=== PATIENT | male | born 1990 | race Caucasian/White ===

== ENCOUNTER → 2017-11-18 08:51 | Outpatient (CLI) | payer OTHER, SELFPAY ==
--- NOTE | 2017-11-18 08:58 | ECHOD_ITS ---
Reason For Study: Bicuspid AV Procedure This was a 2D Doppler, Color Flow transthoracic echocardiogram. Exam performed in department. Left Ventricle Normal size and thickness. The estimated ejection fraction is 65 %. Normal diastology for age. No regional wall motion abnormalities noted. Right Ventricle Normal size and thickness. Normal systolic function. Atria Normal left atrium. Normal right atrium. Normal atrial septum. Mitral Valve The mitral valve is structurally normal. No prolapse or stenosis seen. Trivial mitral valve insufficiency. Tricuspid Valve Normal tricuspid valve. Unable to estimate RV systolic pressure due to inadequate jet, pulmonary artery pressure probably normal. Aortic Valve Bicuspid aortic valve. Mild aortic stenosis. Pulmonic Valve The pulmonic valve is not well visualized. Great Vessels Normal aortic root. Normal arch. Normal inferior vena cava. Inferior vena cava collapse with sniff. Pericardium/Pleural No pericardial effusion. MMode/2D Measurements & Calculations LVIDd: 5.0 cm IVSd: 1.0 cm LVOT diam: 2.2 cm LVIDs: 3.2 cm LVPWd: 1.1 cm LVOT area: 3.7 cm2 RVDd: 3.7 cm FS: 36.6 % Ao root diam: 3.7 cm LAV(MOD-bp): 51.3 ml LA A4 area: 14.9 cm2 LA dimension: 3.2 cm LAV(MOD-bp) Indexed: 24.0 ml/m2 LAV(MOD-sp2): 70.2 ml LAV(MOD-sp4): 37.4 ml RA A4 area: 12.2 cm2 Time Measurements MV dec time: 0.21 sec Doppler Measurements & Calculations MV E max macario: 86.4 cm/sec Lat Peak E' Macario: 11.5 cm/sec Med Peak E' Macario: 11.1 cm/sec MV A max macario: 87.2 cm/sec E/E' lat: 7.5 E/E' med: 7.8 MV E/A: 0.99 MV V2 max: 99.7 cm/sec MV P1/2t max macario: 86.7 cm/sec Ao V2 max: 168.5 cm/sec MV max P.0 mmHg MV P1/2t: 106.2 msec Ao max P.4 mmHg MV V2 mean: 56.6 cm/sec MV dec slope: 239.1 cm/sec2 Ao V2 mean: 104.0 cm/sec MV mean P.5 mmHg MVA(P1/2t): 2.1 cm2 Ao mean P.1 mmHg MV V2 VTI: 29.7 cm Ao V2 VTI: 30.0 cm MVA(VTI): 2.5 cm2 MARTA(I,D): 2.5 cm2 MARTA(V,D): 2.4 cm2 LV V1 max: 108.7 cm/sec SV(LVOT): 74.6 ml PA V2 max: 92.5 cm/sec LV V1 max P.7 mmHg LV V1 mean P.5 mmHg LV V1 mean: 71.5 cm/sec LV V1 VTI: 20.1 cm Interpretation Summary The estimated ejection fraction is 65 %. Normal diastology for age. Trivial mitral valve insufficiency. Unable to estimate RV systolic pressure due to inadequate jet, pulmonary artery pressure probably normal. Bicuspid aortic valve with fusion of the right and left coronary cusps. Mild aortic stenosis. Compared to echo report dated 11/14/2009, no appreciable changes noted. Ordering Physician: Pamela To Referring Physician: Pamela To Performed By: Wade Glass RCS
== END ==
DX: Q23.1 Congenital insufficiency of aortic valve (principal)
CPT/HCPCS: 93306

== ENCOUNTER 2018-07-25 07:32 | Outpatient (RCR) | payer OTHER, SELFPAY ==
[2018-07-18 10:01] LABS: Mean Corp Hgb Conc 33.3 g/gl (32-36); Mean Corpuscular Hgb 28.4 pg (27.0-32.0); Mean Corpuscular Volume 85.2 fL (80-94); Mean Platelet Vol. 10.9 fl (6.2-12.0); Platelet Count 108 K/mm3 (150-450); RBC Distribution Width CV 13.5 % (11.6-14.6); Red Blood Count 4.93 M/mm3 (4.6-6.2); White Blood Count 13.5 K/mm3 (4.4-11.0)
[2018-07-18 10:03] LABS: Scan Indicated on CBC? Y/N NO
[2018-07-25 10:27] LABS: Hematocrit 45.5 % (40-54); Mean Corpuscular Hgb 28.8 pg (27.0-32.0); Mean Corpuscular Volume 87.3 fL (80-94); Mean Platelet Vol. 12.9 fl (6.2-12.0); Platelet Count 28 K/mm3 (150-450); RBC Distribution Width SD 44.6 fl (35.1-43.9); Red Blood Count 5.21 M/mm3 (4.6-6.2); White Blood Count 13.6 K/mm3 (4.4-11.0)
[2018-07-25 10:51] LABS: AST(SGOT) 20 U/L (15-37); Alanine Aminotransfer ALT/SGPT 61 U/L (16-61); Albumin, Serum 3.9 g/dL (3.2-5.0); Alkaline Phosphatase 59 U/L (45-117); Anion Gap 10 (5-15); BUN 20 mg/dL (7-18); BUN/Creat Ratio 19.6 RATIO (10-20); Bilirubin, Direct 0.15 mg/dL (0.00-0.30); Calcium,Total 9.1 mg/dL (8.5-10.1); Chloride 102 mmol/L (98-107); Creatinine, Serum 1.02 mg/dL (0.70-1.30); EST Glomerular Filtration Rate 91 mL/min (>60); Est Glom Filt Rate - Afr Amer 110 mL/min (>60); Globulin 4.4 g/dL (2.2-4.2); Glucose 113 mg/dL (74-106); Potassium 4.3 mmol/L (3.5-5.1); Protein, Total 8.3 g/dL (6.4-8.2); Sodium Level 138 mmol/L (136-145)
[2018-07-25 11:14] LABS: Scan Indicated on CBC? Y/N YES- FLAGS NOTED
[2018-07-25 11:49] LABS: Differential Comment SCANNED
[2018-07-26 15:17] LABS: Absolute CD4 Helper 687 /uL (359-1519); Basophils (Absolute) 0 x10E3/uL (0.0-0.2); CD4/CD8 Ratio 0.46 (0.92-3.72); Eosinophils 0 % (Not Estab.); Eosinophils (Absolute) 0 x10E3/uL (0.0-0.4); Hematocrit 44.1 % (37.5-51.0); Hemoglobin 15.2 g/dL (13.0-17.7); Immature Granulocytes 0 % (Not Estab.); Immature Granulocytes Absolute 0 x10E3/uL (0.0-0.1); Lymphs 21 % (Not Estab.); Lymphs (Absolute) 2.9 x10E3/uL (0.7-3.1); MCH 29.9 pg (26.6-33.0); MCHC 34.5 g/dL (31.5-35.7); MCV 87 fL (79-97); Monocytes 6 % (Not Estab.); Monocytes (Absolute) 0.8 x10E3/uL (0.1-0.9); Neutrophils 73 % (Not Estab.); Neutrophils (Absolute) 9.9 x10E3/uL (1.4-7.0); Percent % CD4 Pos. Lymph. 23.7 % (30.8-58.5); RBC Count 5.09 x10E6/uL (4.14-5.80); RDW 14.8 % (12.3-15.4)
[2018-07-26 16:03] LABS: Platelets 34 x10E3/uL (150-379); WBC Count 13.7 x10E3/uL (3.4-10.8)
[2018-07-27 09:22] LABS: Pathologist Review Reviewed
[2018-07-28 11:24] LABS: HIV-1 RNA by PCR, Quant. 4950 copies/mL (.); LOG10 HIV-1 RNA 3.695 (.)
[2018-07-29 07:38] LABS: Rapid Plasmin Reagin (RPR) NONREACTIVE (NONREACTIVE)
== END 2018-07-25 09:00 | disposition home or self-care (01) ==
LOC: MTLAB 07:32
DX: D69.3 Immune thrombocytopenic purpura (principal); B20 Human immunodeficiency virus [HIV] disease
CPT/HCPCS: 36415; 80048; 80076; 85027; 86360; 86592; 87536

== ENCOUNTER 2018-08-22 07:39 | Outpatient (RCR) | payer OTHER, SELFPAY ==
[2018-08-08 10:32] LABS: Hematocrit 46.6 % (40-54); Hemoglobin 15.3 g/dl (13.0-16.5); Mean Corp Hgb Conc 32.8 g/gl (32-36); Mean Corpuscular Hgb 29.1 pg (27.0-32.0); Mean Corpuscular Volume 88.8 fL (80-94); Mean Platelet Vol. 11.1 fl (6.2-12.0); Platelet Count 100 K/mm3 (150-450); RBC Distribution Width CV 14.4 % (11.6-14.6); RBC Distribution Width SD 46.8 fl (35.1-43.9); Red Blood Count 5.25 M/mm3 (4.6-6.2); White Blood Count 9.8 K/mm3 (4.4-11.0)
[2018-08-08 10:34] LABS: Scan Indicated on CBC? Y/N NO
[2018-08-22 10:03] LABS: Hematocrit 44.3 % (40-54); Hemoglobin 15.3 g/dl (13.0-16.5); Mean Corp Hgb Conc 34.5 g/gl (32-36); Mean Corpuscular Hgb 30.4 pg (27.0-32.0); Mean Corpuscular Volume 87.9 fL (80-94); Mean Platelet Vol. 10.6 fl (6.2-12.0); Platelet Count 159 K/mm3 (150-450); RBC Distribution Width CV 13.7 % (11.6-14.6); RBC Distribution Width SD 43.6 fl (35.1-43.9); Red Blood Count 5.04 M/mm3 (4.6-6.2); White Blood Count 6.8 K/mm3 (4.4-11.0)
[2018-08-22 10:04] LABS: Scan Indicated on CBC? Y/N NO
== END 2018-08-25 15:02 | disposition home or self-care (01) ==
LOC: MTLAB 07:39
DX: D69.3 Immune thrombocytopenic purpura (principal)
CPT/HCPCS: 36415; 85027

== ENCOUNTER 2018-10-03 07:53 | Outpatient (RCR) | payer OTHER, SELFPAY ==
[2018-10-03 10:01] LABS: Hematocrit 42.8 % (40-54); Hemoglobin 14.7 g/dl (13.0-16.5); Mean Corp Hgb Conc 34.3 g/gl (32-36); Mean Corpuscular Hgb 29.9 pg (27.0-32.0); Mean Corpuscular Volume 87.2 fL (80-94); Mean Platelet Vol. 11.5 fl (6.2-12.0); Platelet Count 95 K/mm3 (150-450); RBC Distribution Width CV 13.9 % (11.6-14.6); RBC Distribution Width SD 43.4 fl (35.1-43.9); Red Blood Count 4.91 M/mm3 (4.6-6.2); White Blood Count 6.6 K/mm3 (4.4-11.0)
[2018-10-03 10:06] LABS: Scan Indicated on CBC? Y/N NO
== END 2018-10-25 16:00 | disposition home or self-care (01) ==
LOC: MTLAB 07:53
DX: D69.3 Immune thrombocytopenic purpura (principal)
CPT/HCPCS: 36415; 85027

== ENCOUNTER 2018-10-17 07:46 | Outpatient (RCR) | payer OTHER, SELFPAY ==
[2018-10-10 12:34] LABS: Hematocrit 42.9 % (40-54); Hemoglobin 14.5 g/dl (13.0-16.5); Mean Corp Hgb Conc 33.8 g/gl (32-36); Mean Corpuscular Hgb 29.2 pg (27.0-32.0); Mean Corpuscular Volume 86.5 fL (80-94); Mean Platelet Vol. 12.2 fl (6.2-12.0); Platelet Count 33 K/mm3 (150-450); RBC Distribution Width CV 13.7 % (11.6-14.6); RBC Distribution Width SD 42.8 fl (35.1-43.9); Red Blood Count 4.96 M/mm3 (4.6-6.2); White Blood Count 5.3 K/mm3 (4.4-11.0)
[2018-10-10 14:03] LABS: Scan Indicated on CBC? Y/N YES- FLAGS NOTED
[2018-10-11 14:11] LABS: Pathologist Review Reviewed
[2018-10-17 10:32] LABS: Hematocrit 41.9 % (40-54); Mean Corp Hgb Conc 33.4 g/gl (32-36); Mean Corpuscular Hgb 29.5 pg (27.0-32.0); Mean Corpuscular Volume 88.2 fL (80-94); Mean Platelet Vol. 11.3 fl (6.2-12.0); Platelet Count 41 K/mm3 (150-450); RBC Distribution Width CV 13.7 % (11.6-14.6); Red Blood Count 4.75 M/mm3 (4.6-6.2); White Blood Count 5.3 K/mm3 (4.4-11.0)
[2018-10-17 11:05] LABS: Scan Indicated on CBC? Y/N YES- FLAGS NOTED
[2018-10-17 11:19] LABS: Differential Comment SCANNED
[2018-10-18 14:43] LABS: Pathologist Review Reviewed
== END 2018-10-25 16:00 | disposition home or self-care (01) ==
LOC: MTLAB 07:46
DX: D69.3 Immune thrombocytopenic purpura (principal)
CPT/HCPCS: 36415; 85027

== ENCOUNTER 2018-10-26 13:36 | Outpatient (RCR) | payer OTHER, SELFPAY | END 2018-10-26 13:37 | disposition home or self-care (01) | LOC: MTLAB 13:36 | DX: D69.3 Immune thrombocytopenic purpura (principal) ==

== ENCOUNTER 2018-10-31 08:08 | Outpatient (RCR) | payer OTHER, SELFPAY ==
[2018-10-31 10:55] LABS: Hematocrit 45.5 % (40-54); Hemoglobin 15.2 g/dl (13.0-16.5); Mean Corp Hgb Conc 33.4 g/gl (32-36); Mean Corpuscular Hgb 29.8 pg (27.0-32.0); Mean Corpuscular Volume 89.2 fL (80-94); Mean Platelet Vol. 13.5 fl (6.2-12.0); Platelet Count 37 K/mm3 (150-450); RBC Distribution Width CV 13.2 % (11.6-14.6); RBC Distribution Width SD 43.2 fl (35.1-43.9)
[2018-10-31 11:01] LABS: Scan Indicated on CBC? Y/N YES- FLAGS NOTED
[2018-11-01 15:21] LABS: Pathologist Review Reviewed
== END 2018-10-31 10:00 | disposition home or self-care (01) ==
LOC: MTLAB 08:08
DX: D69.3 Immune thrombocytopenic purpura (principal)
CPT/HCPCS: 36415; 85027

== ENCOUNTER 2018-12-08 11:36 | Outpatient (RCR) | payer OTHER, SELFPAY ==
[2018-12-08 14:07] LABS: Hematocrit 44.4 % (40-54); Hemoglobin 14.6 g/dl (13.0-16.5); Mean Corp Hgb Conc 32.9 g/gl (32-36); Mean Corpuscular Hgb 29.6 pg (27.0-32.0); Mean Corpuscular Volume 89.9 fL (80-94); Mean Platelet Vol. 12.9 fl (6.2-12.0); RBC Distribution Width CV 12.4 % (11.6-14.6); RBC Distribution Width SD 40.2 fl (35.1-43.9); Red Blood Count 4.94 M/mm3 (4.6-6.2)
[2018-12-08 14:13] LABS: Platelet Count 37 K/mm3 (150-450); Scan Indicated on CBC? Y/N YES- FLAGS NOTED
[2018-12-08 14:38] LABS: AST(SGOT) 19 U/L (15-37); Alanine Aminotransfer ALT/SGPT 27 U/L (16-61); Albumin, Serum 3.6 g/dL (3.2-5.0); Alkaline Phosphatase 80 U/L (45-117); Anion Gap 7 (5-15); BUN 10 mg/dL (7-18); BUN/Creat Ratio 10.4 RATIO (10-20); Bilirubin, Direct < 0.05 mg/dL (0.00-0.30); Calcium,Total 8.2 mg/dL (8.5-10.1); Chloride 105 mmol/L (98-107); Cholesterol 183 mg/dL (200); Creatinine, Serum 0.96 mg/dL (0.70-1.30); EST Glomerular Filtration Rate 97 mL/min (>60); Est Glom Filt Rate - Afr Amer 118 mL/min (>60); Globulin 3.3 g/dL (2.2-4.2); Glucose 102 mg/dL (74-106); High Density Lipoprotein 29 mg/dL; Protein, Total 6.9 g/dL (6.4-8.2); Sodium Level 142 mmol/L (136-145); Thyroid Stim Hormone (TSH) 0.45 uIU/mL (0.358-3.74); Triglycerides 672 mg/dL
[2018-12-09 01:44] LABS: Rapid Plasmin Reagin (RPR) NONREACTIVE (NONREACTIVE)
[2018-12-09 12:17] LABS: Pathologist Review Reviewed
[2018-12-09 14:06] LABS: Absolute CD4 Helper 830 /uL (359-1519); Basophils (Absolute) 0 x10E3/uL (0.0-0.2); Eosinophils 3 % (Not Estab.); Eosinophils (Absolute) 0.3 x10E3/uL (0.0-0.4); Hematocrit 42.5 % (37.5-51.0); Hemoglobin 14.3 g/dL (13.0-17.7); Immature Granulocytes 0 % (Not Estab.); Immature Granulocytes Absolute 0 x10E3/uL (0.0-0.1); Lymphs 22 % (Not Estab.); Lymphs (Absolute) 2.3 x10E3/uL (0.7-3.1); MCH 29.2 pg (26.6-33.0); MCHC 33.6 g/dL (31.5-35.7); MCV 87 fL (79-97); Monocytes 7 % (Not Estab.); Monocytes (Absolute) 0.7 x10E3/uL (0.1-0.9); Neutrophils 68 % (Not Estab.); Neutrophils (Absolute) 6.9 x10E3/uL (1.4-7.0); Percent % CD4 Pos. Lymph. 36.1 % (30.8-58.5); RDW 12.1 % (12.3-15.4); WBC Count 10.1 x10E3/uL (3.4-10.8)
[2018-12-09 15:38] LABS: Platelets 44 x10E3/uL (150-450)
[2018-12-11 15:19] LABS: HIV-1 RNA by PCR, Quant. < 20 copies/mL (.)
== END 2018-12-08 12:00 | disposition home or self-care (01) ==
LOC: MTLAB 11:36
DX: B20 Human immunodeficiency virus [HIV] disease (principal); D69.3 Immune thrombocytopenic purpura
CPT/HCPCS: 36415; 80048; 80061; 80076; 84443; 85027; 86361; 86592; 87536

== ENCOUNTER 2019-01-17 07:20 | Outpatient (RCR) | payer OTHER, SELFPAY ==
[2018-12-30 10:27] LABS: Hematocrit 46.4 % (40-54); Hemoglobin 15.5 g/dl (13.0-16.5); Mean Corp Hgb Conc 33.4 g/gl (32-36); Mean Corpuscular Hgb 29.6 pg (27.0-32.0); Mean Corpuscular Volume 88.5 fL (80-94); RBC Distribution Width CV 12.9 % (11.6-14.6); RBC Distribution Width SD 41.7 fl (35.1-43.9); Red Blood Count 5.24 M/mm3 (4.6-6.2); White Blood Count 13.3 K/mm3 (4.4-11.0)
[2018-12-30 10:38] LABS: POSITIVE COUNT YES; POSITIVE DIFFERENTIAL NO; POSITIVE MORPHOLOGY YES
[2018-12-30 10:56] LABS: Differential Indicated MANUAL DIFF
[2018-12-30 11:00] LABS: Blast 1 % (0-0); Eosinophil 2 % (0-5); Lymphocyte 34 % (19-41); Metamyelocyte 2 % (0-1); Monocyte 7 % (0-10); Myelocyte 1 (0-0); Neutrophil-Band 1 % (0-5); Neutrophil-Segmented 52 % (47-70); Total Cells Counted 100 (MANUAL DIFF)
[2018-12-30 11:02] LABS: Differential Comment SCANNED; Platelet Estimate MKD DEC (ADEQ)
[2018-12-30 11:03] LABS: Absolute Lymphocyte Count 4.52 X10^3/ul (0.83-4.51); Absolute Neutrophil Count 7.1 X10^3/uL (2.0-7.7); Lymphocyte # 4.52 X10^3/ul (4.0); Neutrophil # 7.05 X10^3/uL (2.7-7.7)
[2018-12-30 11:07] LABS: Platelet Count 17 K/mm3 (150-450)
[2019-01-03 09:54] LABS: Pathologist Review Reviewed
[2019-01-17 10:12] LABS: Hematocrit 44.8 % (40-54); Hemoglobin 14.9 g/dL (13.0-16.5); Mean Corp Hgb Conc 33.3 g/dL (32-36); Mean Corpuscular Hgb 29.2 pg (27.0-32.0); Mean Corpuscular Volume 87.8 fL (80-94); Mean Platelet Vol. 13.6 fl (6.2-12.0); POSITIVE COUNT YES; Platelet Count 23 K/mm3 (150-450); RBC Distribution Width CV 12.1 % (11.6-14.6); RBC Distribution Width SD 39.1 fl (35.1-43.9); White Blood Count 8.1 K/mm3 (4.4-11.0)
[2019-01-17 10:20] LABS: Scan Indicated on CBC? Y/N YES- FLAGS NOTED
[2019-01-18 09:43] LABS: Pathologist Review Reviewed
== END 2019-01-17 07:30 | disposition home or self-care (01) ==
LOC: MTLAB 07:20
DX: D69.3 Immune thrombocytopenic purpura (principal)
CPT/HCPCS: 36415; 85025; 85027

== ENCOUNTER 2019-02-16 16:10 | Outpatient (RCR) | payer OTHER, SELFPAY ==
[2019-02-16 17:32] LABS: Hematocrit 46.3 % (40-54); Hemoglobin 15.5 g/dL (13.0-16.5); Mean Corp Hgb Conc 33.5 g/dL (32-36); Mean Corpuscular Hgb 29.3 pg (27.0-32.0); Mean Corpuscular Volume 87.5 fL (80-94); Mean Platelet Vol. 11.4 fl (6.2-12.0); Platelet Count 74 K/mm3 (150-450); RBC Distribution Width CV 12.2 % (11.6-14.6); RBC Distribution Width SD 39.1 fl (35.1-43.9); Red Blood Count 5.29 M/mm3 (4.6-6.2); White Blood Count 7.8 K/mm3 (4.4-11.0)
== END 2019-02-16 17:10 | disposition home or self-care (01) ==
LOC: MTLAB 16:10
DX: D69.3 Immune thrombocytopenic purpura (principal)
CPT/HCPCS: 36415; 85027

== ENCOUNTER 2019-03-23 07:35 | Outpatient (RCR) | payer OTHER, SELFPAY ==
[2019-03-02 10:03] LABS: Hematocrit 41.2 % (40-54); Hemoglobin 13.4 g/dL (13.0-16.5); Mean Corp Hgb Conc 32.5 g/dL (32-36); Mean Corpuscular Hgb 28.8 pg (27.0-32.0); Mean Corpuscular Volume 88.6 fL (80-94); Mean Platelet Vol. 12.5 fl (6.2-12.0); POSITIVE COUNT YES; RBC Distribution Width CV 12.9 % (11.6-14.6); RBC Distribution Width SD 41.6 fl (35.1-43.9); Red Blood Count 4.65 M/mm3 (4.6-6.2); White Blood Count 8.2 K/mm3 (4.4-11.0)
[2019-03-02 10:27] LABS: Platelet Count 23 K/mm3 (150-450); Scan Indicated on CBC? Y/N YES- FLAGS NOTED
[2019-03-06 13:16] LABS: Pathologist Review Reviewed
[2019-03-09 10:34] LABS: Hematocrit 44.1 % (40-54); Hemoglobin 14.6 g/dL (13.0-16.5); Mean Corp Hgb Conc 33.1 g/dL (32-36); Mean Corpuscular Hgb 29.2 pg (27.0-32.0); Mean Corpuscular Volume 88.2 fL (80-94); Mean Platelet Vol. 12.5 fl (6.2-12.0); POSITIVE COUNT YES; RBC Distribution Width CV 12.8 % (11.6-14.6); RBC Distribution Width SD 41.3 fl (35.1-43.9); White Blood Count 9.6 K/mm3 (4.4-11.0)
[2019-03-09 10:51] LABS: Scan Indicated on CBC? Y/N YES- FLAGS NOTED
[2019-03-09 10:58] LABS: Platelet Count 12 K/mm3 (150-450)
[2019-03-10 12:16] LABS: Pathologist Review Reviewed
[2019-03-13 10:03] LABS: Hematocrit 47.9 % (40-54); Hemoglobin 15.9 g/dL (13.0-16.5); Mean Corp Hgb Conc 33.2 g/dL (32-36); Mean Corpuscular Hgb 29.1 pg (27.0-32.0); Mean Corpuscular Volume 87.7 fL (80-94); Platelet Count 206 K/mm3 (150-450); RBC Distribution Width SD 41.5 fl (35.1-43.9); Red Blood Count 5.46 M/mm3 (4.6-6.2)
[2019-03-23 08:44] LABS: Hematocrit 44.9 % (40-54); Hemoglobin 14.8 g/dL (13.0-16.5); Mean Corpuscular Hgb 29.3 pg (27.0-32.0); Mean Corpuscular Volume 88.9 fL (80-94); Platelet Count 68 K/mm3 (150-450); RBC Distribution Width CV 12.4 % (11.6-14.6); RBC Distribution Width SD 40.9 fl (35.1-43.9); Red Blood Count 5.05 M/mm3 (4.6-6.2); White Blood Count 7.6 K/mm3 (4.4-11.0)
[2019-03-23 08:45] LABS: Scan Indicated on CBC? Y/N YES- FLAGS NOTED
[2019-03-23 09:07] LABS: Differential Comment SCANNED
== END 2019-03-23 18:00 | disposition home or self-care (01) ==
LOC: MTLAB 07:35
PROVIDERS: Referring Provider Internal Medicine Hematology & Oncology; Visit Provider Internal Medicine Hematology & Oncology
DX: D69.3 Immune thrombocytopenic purpura (principal)
CPT/HCPCS: 36415; 85027

== ENCOUNTER 2019-03-30 07:19 | Outpatient (RCR) | payer OTHER, SELFPAY ==
[2019-03-30 10:07] LABS: Hematocrit 45.6 % (40-54); Mean Corp Hgb Conc 32.9 g/dL (32-36); Mean Corpuscular Volume 88.2 fL (80-94); Mean Platelet Vol. 11.2 fl (6.2-12.0); Platelet Count 80 K/mm3 (150-450); RBC Distribution Width CV 12.2 % (11.6-14.6); RBC Distribution Width SD 39.8 fl (35.1-43.9); Red Blood Count 5.17 M/mm3 (4.6-6.2); White Blood Count 8.1 K/mm3 (4.4-11.0)
== END 2019-03-30 18:00 | disposition home or self-care (01) ==
LOC: MTLAB 07:19
PROVIDERS: Referring Provider Internal Medicine Hematology & Oncology; Visit Provider Internal Medicine Hematology & Oncology
DX: D69.3 Immune thrombocytopenic purpura (principal)
CPT/HCPCS: 36415; 85027